=== PATIENT | female | born 1995 | race American Indian/Alaskan Native ===

== ENCOUNTER 2018-03-06 03:55 | Emergency (ER) | payer SELFPAY ==
[2018-03-06 04:08] VITALS: O2SAT 98
--- NOTE | 2018-03-06 04:28 | C.PDOC ---
History Of Present Illness 22 year old female presents to the ED c/o left ear pain for the past 2 days. Patient reports pain is worsening now, patient states she took Tylenol at 22:00 today with no relief to symptoms. Patient denies fever, chills, nausea, vomit, headache, dizziness, injury, fall, trauma. Time Seen by Provider: 03/06/18 04:11 Chief Complaint (Nursing): ENT Problem History Per: Patient History/Exam Limitations: None Onset/Duration Of Symptoms: Days (2) Current Symptoms Are (Timing): Still Present Quality (Ear): Pain W/Touch Anticoagulant/Antiplatlet Use?: No Recent Aspirin Use: No Past Medical History Reviewed: Historical Data, Nursing Documentation, Vital Signs Vital Signs: Last Vital Signs Temp 97.7 F 03/06/18 03:59 Pulse 83 03/06/18 03:59 Resp 18 03/06/18 03:59 BP 133/77 03/06/18 03:59 Pulse Ox 98 03/06/18 03:59 - Medical History PMH: No Chronic Diseases Surgical History: No Surg Hx Family History: States: Unknown Family Hx - Social History Hx Tobacco Use: No Hx Alcohol Use: No Hx Substance Use: No - Immunization History Hx Tetanus Toxoid Vaccination: No Hx Influenza Vaccination: No Hx Pneumococcal Vaccination: No Review Of Systems Constitutional: Negative for: Fever, Chills Eyes: Negative for: Vision Change ENT: Positive for: Ear Pain. Negative for: Nose Discharge, Nose Congestion Respiratory: Negative for: Cough, Shortness of Breath Gastrointestinal: Negative for: Nausea, Vomiting Skin: Negative for: Rash Neurological: Negative for: Headache, Dizziness Physical Exam - Physical Exam Appears: Non-toxic, No Acute Distress Skin: Normal Color, Warm, Dry Head: Atraumatic, Normacephalic Eye(s): bilateral: Normal Inspection Ear(s): Left: Other (+ tragus tenderness. Ear canal erythematous, mild effusion and discharge), Right: Normal Nose: Discharge Throat: Normal, No Erythema, No Exudate Extremity: Normal ROM Neurological/Psych: Oriented x3, Normal Speech, Normal Cognition Gait: Steady ED Course And Treatment O2 Sat by Pulse Oximetry: 98 (ON RA) Pulse Ox Interpretation: Normal Progress Note: Plan: - Motrin 800 mg PO. - Cortisporin otic soln 4 drop . On reassessment, patient is resting comfortably, and is in no acute distress. Patient was instructed to follow up with physician/clinic in 1-2 days for further evaluation. Disposition Counseled Patient/Family Regarding: Diagnosis, Need For Followup - Disposition Referrals: [facility] [Outside] Disposition: HOME/ ROUTINE Disposition Time: 04:51 Condition: GOOD Additional Instructions: Take medication as directed Apply 3 drops to left ear 3 x daily Avoid water to ears Return to ER if worse Prescriptions: Ibuprofen [Motrin] 600 mg PO Q6H #24 tab Instructions: Outer Ear Infection (DC) Forms: [employer] (Citizen Of [place]) - Clinical Impression Clinical Impression: Otitis externa - PA / BLOOD BANK TECHNICIAN / Resident Statement MD/DO has reviewed & agrees with the documentation as recorded. - Scribe Statement The provider has reviewed the documentation as recorded by the Scribe Jet Dietz All medical record entries made by the Scribe were at my direction and personally dictated by me. I have reviewed the chart and agree that the record accurately reflects my personal performance of the history, physical exam, medical decision making, and the department course for this patient. I have also personally directed, reviewed, and agree with the discharge instructions and disposition.
[2018-03-06 04:55] VITALS: BP 128/73; PULSE 74; RESP 17; TEMP 98
[2018-03-06] MEDS ORDERED: Neomycin/Polymyxin/Hydrocort Otic Soln BOTTLE AS SCH (10:00)
== END 2018-03-06 05:01 | disposition home or self-care (01) ==
LOC: C.ER 03:55
DX: H60.92 Unspecified otitis externa, left ear (principal)